=== PATIENT | male | born 1980 | race Two or more races ===

== ENCOUNTER 2020-07-09 18:47 | Emergency (ER) | payer SELFPAY ==
[~2020-07-09] VITALS: Ht 185.4 cm; Wt 90.7 kg
--- NOTE | 2020-07-09 19:05 | NUR ---
left elbow injury after a mechanical GLF, fell on his left elbow + pain, deformity noted on exam. Patient a/ox4, breathing even and unlabored, no sob noted, placed in bed 5, kept comfortable.
[2020-07-09] MEDS ORDERED: ONDANSETRON HCL/PF 4 MG/2 ML VIAL ONE (19:12)
[2020-07-09] MEDS ORDERED: MORPHINE SULFATE INJ 4 MG/ML DISP.SYRIN ONE (19:13)
--- NOTE | 2020-07-09 19:17 | NUR ---
EARLY CHILDHOOD AIDE CLASSROOM AT BEDSIDE
[2020-07-09] MEDS ORDERED: IV NS 0.9% 1,000 ML BAG IV ONE (19:30)
[2020-07-09] MEDS ORDERED: ONDANSETRON HCL/PF 4 MG/2 ML VIAL IV ONE (19:30)
[2020-07-09] MEDS ORDERED: MORPHINE SULFATE INJ 2 MG/ML DISP.SYRIN IV ONE (19:30)
--- NOTE | 2020-07-09 19:41 | NUR ---
MD GORDON AT BEDSIDE FOR REEVALUATION
[2020-07-09] MEDS ORDERED: PROPOFOL 20 ML IV ONE (19:58)
--- NOTE | 2020-07-09 19:58 | NUR ---
CALLED RT FOR MODERATE SEDATION
[2020-07-09] MEDS ORDERED: PROPOFOL 200 MG/20 ML VIAL IV ONE (20:00)
[2020-07-09] MEDS ORDERED: HYDROMORPHONE 1 MG/1 ML DISP.SYRIN ONE (20:27)
--- NOTE | 2020-07-09 20:29 | NUR ---
RADIOLOGY AT BEDSIDE
[2020-07-09] MEDS ORDERED: HYDROMORPHONE 1 MG/1 ML DISP.SYRIN IV ONE (20:30)
--- NOTE | 2020-07-09 21:15 | NUR ---
dr. baptiste, rt, nurse at bedside ready for reduction of left elbow with moderation sedation
--- NOTE | 2020-07-09 21:22 | NUR ---
PLACED SLING AND SPLINT ON LEFT ARM
--- NOTE | 2020-07-09 21:23 | NUR ---
PATIENT IS AWAKE FROM PROCEDURE.
--- NOTE | 2020-07-09 21:23 | NUR ---
CALLED [facility] REGARDING XRAY
[2020-07-09] MEDS ORDERED: IBUP-1955 PO (21:33)
[2020-07-09] MEDS ORDERED: HYDR-4209 PO (21:33)
--- NOTE | 2020-07-09 21:45 | NUR ---
IV removed. Catheter intact and site benign. Pressure and 4x4 applied to site. No bleeding noted.
--- NOTE | 2020-07-09 21:46 | NUR ---
Patient is ambulatory with a steady gait. Patient discharged to home in stable condition. Written and verbal after care instructions given. Patient verbalizes understanding of instruction.
[2020-07-09 22:33] VITALS: BP 128/78
== END 2020-07-09 21:36 | disposition home or self-care (01) ==
LOC: ER 18:52
DX: S53.125A Posterior dislocation of left ulnohumeral joint, initial encounter (principal); S52.122A Displaced fracture of head of left radius, initial encounter for closed fracture; S52.132A Displaced fracture of neck of left radius, initial encounter for closed fracture; W18.39XA Other fall on same level, initial encounter; Y93.66 Activity, soccer; Y92.89 Other specified places as the place of occurrence of the external cause; Y99.8 Other external cause status
CPT/HCPCS: 24600; 73080 ×2; 96361; 96374; 96375; 99152; 99285; J1170; J2270; J2405; J2704; J7030; G0500